=== PATIENT | male | born 1980 | race Caucasian/White ===

== ENCOUNTER 2016-08-20 12:43 | Emergency (ER) | payer OTHER ==
[2016-08-20] MEDS ORDERED: LIDOCAINE HCL 1,000 MG/50 ML VIAL ONE (13:22)
--- NOTE | 2016-08-20 13:54 | ERNOTE ---
Integumentary HPI - Narrative Date of Service: 08/20/16 - General Presenting Symptoms: other - skin problem Time Seen by Provider: 08/20/16 12:59 Source: patient Exam Limitations: no limitations - Immun/Allergies/Home Medications Immunizations: IMMUNIZATION HX Immunizations Up to Date Yes History of Influenza Vaccine No Hx Pneumococcal Vaccination No Allergies/Adverse Reactions: Allergies Allergy/AdvReac Type Severity Reaction Status Date / Time No Known Allergies Allergy Verified 08/20/16 13:03 Home Medications: HOME MEDICATIONS Blood Sugar Diagnostic, Drum [Accu-Chek Compact] 1 each MC TID 11/16/15 [Last Taken 12/10/15] Fenofibrate Nanocrystallized [Tricor] 145 mg PO DAILY 11/16/15 [Last Taken 12/09] Glipizide [Glucotrol Xl] 5 mg PO DAILY 11/16/15 [Last Taken 12/10/15] Ibuprofen [Motrin] 800 mg PO BID PRN 11/16/15 [Last Taken 12/10/15] Lisinopril [Zestril] 40 mg PO BID 11/16/15 [Last Taken 12/11/15] Metoprolol Succinate [Toprol Xl] 100 mg PO QAM 11/16/15 [Last Taken 12/11/15] traMADol HCL [Ultram] 50 - 100 mg PO Q6H PRN 11/16/15 [Last Taken 12/10/15] Albiglutide [Tanzeum] 30 mg SQ SA 08/20/16 [Last Taken Unknown] Atorvastatin Calcium [Lipitor] 10 mg PO DAILY 08/20/16 [Last Taken Unknown] Ciprofloxacin HCl [Cipro] 500 mg PO BID #20 tab 08/20/16 [Last Taken Unknown] Clindamycin HCl [Cleocin HCl] 300 mg PO QID #40 capsule 08/20/16 [Last Taken Unknown] Dexlansoprazole [Dexilant] 30 mg PO DAILY 08/20/16 [Last Taken Unknown] Hydrocodone/Acetaminophen [[place] 5-325 Tablet] 1 tab PO Q6H PRN #12 tab [Last Taken Unknown] Insulin Glargine,Hum.rec.anlog [Lantus] 20 units SC QAM 08/20/16 [Last Taken Unknown] Insulin Glargine,Hum.rec.anlog [Lantus] 30 units SC HS 08/20/16 [Last Taken Unknown] Nebivolol HCl [Bystolic] 10 mg PO DAILY 08/20/16 [Last Taken Unknown] - History of Present Illness Narrative: Patient presents to the ED for skin pain and swelling right inner upper thigh. This area in in the groin crease but not on the scrotum and no perirectal. He noticed a lump there 7-14 days ago and it has been getting more painful and swollen. No fevers. He does have diabetes. No abdominal pain or vomiting. No troubl ewith urination. Pain worse when the area is touched. No drainage. Has not seen anyone else for this. Location: Reports: other - right inner upper thigh/groin area. Quality: Reports: painful Severity: severe Exposure: Reports: no cause identified Modifying Factors - (Improves): Reports: other - rest Modifying Factors - (Worsens): Reports: other - toughing the area Associated Symptoms: Reports: denies symptoms Prior Treatment: Denies: recently seen Review of Systems - Review of Systems Constitutional: Absent: fever Respiratory: Present: no symptoms reported Cardiology: Present: no symptoms reported Gastrointestinal/Abdominal: Present: no symptoms reported Genitourinary: Absent: dysuria Musculoskeletal: Absent: joint pain Skin: Present: See HPI - Patient's Past Medical History Patient History - Medical: ADHD, Diabetes Type 2 Patient History - Cardiac/Respiratory: Hypertension Patient History - Cancer: No Hx of Cancer Patient History - Surgical Procedures: Ear Tubes, T & A Patient History - Other: None - Family History Mother Family History - Medical: Diabetes Type 1 Family History - Cardiac/Respiratory: No pertinent hx Father Family History - Medical: , No pertinent hx Family History - Cardiac/Respiratory: No pertinent hx Brother Family History - Medical: No pertinent hx Family History - Cardiac/Respiratory: No pertinent hx Sister Family History - Medical: No pertinent hx - Social History Living Situations: home Abuse History: No History of abuse Psych History: No pertinent hx Smoking Status: Former smoker Have you smoked in the past 12 months: Yes Alcohol Use: occasionally Drug Use: none - Immunizations Immunizations Up to Date: Yes Hx Pneumococcal Vaccination: No History of Influenza Vaccine: No Physical Exam - Physical Exam General Appearance: Present: alert, no apparent distress, other - Stable, interactive, no distress. Non-toxic. Eye Exam: Normal inspection: bilateral, PERRL: bilateral Respiratory: Present: normal breath sounds, lungs clear Cardiovascular/Chest: Present: regular rate, rhythm Gastrointestinal/Abdominal: Present: normal bowel sounds, nontender, soft, no organomegaly Rectal Exam: Present: other - There is no perirectal abscess or rectal invilvement Male Genitals Exam: Present: other - The area does not extend onto the scrotum and does not invilve the genitals. No Lenny's gangrene. Back Exam: Present: normal range of motion Extremity Exam: Present: other - no joint infection or invilvement Neurological Exam: Present: no motor/sensory deficits Skin Exam: Present: other - There is a 3cmX1.5 cm area in the upper inner thigh crease not involving the scrotum or rectum. It is tender but not fluctuant. There is no clear fluctuance. Firm. This clinically is MRSA infection without abscess. ED Progress - Vital Signs Patient's Vital Signs:: I have reviewed the patient's vital signs. Vital Signs: Vital Signs 08/20/16 12:54 Temperature 35.8 C L Pulse Rate 98 Respiratory 18 Rate Blood Pressure 151/96 O2 Sat by Pulse 96 Oximetry - Progress/Reassessment Chief Complaint: Cellulitis Progress Note-Subjective: 08/20/16 13:48 No cavity to incise or pack found. Given he is diabetic I will place him on Clinca and Cipro. This is likely MRSA. He needs to be re-checked monday and if it not worsening he may need to be evaluated by surgery for a deep I&D but I can find no abscess cavity at this time. Procedures Right Upper Leg Date and Time: 08/20/16 13:46 Anesthesia: 2% Lidocaine, Local I & D Prep: other - alcohol Findings and Actions: other - As there was no clear abscess cavity I utilized 18G needle to probe the area. A small amount of blood was expresed but no purulence. There is nothing to open or pack here that I can find. Complications: Pt brent procedure well Departure Clinical Impression: Skin infection - Departure Disposition: Home self-care Instructions: Cellulitis, Adult, [id number] Additional Instructions: You need to be seen Monday by your doctor for a re-check as this may need additional therapy. Take antibiotics as directed. No driving with pain medications. Sitz baths. Return for fever, increased pain or if your condition worsens or changes in any way. Referrals: [Primary Care Provider] - Prescriptions: Ciprofloxacin HCl [Cipro] 500 mg PO BID #20 tab Clindamycin HCl [Cleocin HCl] 300 mg PO QID #40 capsule Hydrocodone/Acetaminophen [Alta 5-325 Tablet] 1 tab PO Q6H PRN #12 tab PRN Reason: Pain
[2016-08-20 13:56] VITALS: BP 135/82
== END 2016-08-20 14:00 | disposition home or self-care (01) ==
LOC: ER 12:43
DX: L08.9 Local infection of the skin and subcutaneous tissue, unspecified (principal); E11.9 Type 2 diabetes mellitus without complications; Z79.4 Long term (current) use of insulin; I10 Essential (primary) hypertension; Z87.891 Personal history of nicotine dependence

== ENCOUNTER 2016-08-23 07:58 | Emergency (ER) | payer OTHER ==
[2016-08-23 08:20] LABS: Hematocrit 40.8 % (42.0-52.0); Hemoglobin 15.1 gm/dL (13.5-18.0); Mean Cell Volume 84.8 fl (78-100); Mean Corpuscular Hemoglobin 31.4 pg (27-31); Mean Platelet Volume 11.1 fl (6.0-9.5); Neutrophil # 7.7 K/mm3 (1.3-6.0); Neutrophil % 69.5 % (42-75.0); Platelet Count 174 K/mm3 (150-450); Red Blood Count 4.81 M/mm3 (4.7-6.0); Red Cell Distribution Width 11.9 % (11.5-14.0)
[2016-08-23 08:43] LABS: Albumin * 3.5 gm/dl (3.4-5.0); Anion Gap 22.6 mmol/L (6.8-13.8); BUN/Creatinine Ratio 10.4 (9.0-21.6); Bilirubin, Total 0.8 mg/dL (0.0-1.1); Ca. Corrected For Albumin 8.8 mg/dL (8.4-10.2); Calcium * 8.7 mg/dL (7.9-10.9); Carbon Dioxide 15.3 mmol/L (24-32.6); Potassium 3.9 mmol/L (3.4-4.6); Total Protein 7.6 gm/dL (6.2-8.2)
[2016-08-23 08:54] LABS: Urine Appearance Clear; Urine Bacteria None Seen; Urine Bilirubin Negative (NEGATIVE); Urine Blood Negative /ul (NEGATIVE); Urine Color Yellow; Urine Ketone Negative (NEGATIVE); Urine Nitrite Negative (NEGATIVE); Urine Protein Negative (NEGATIVE); Urine RBC None Seen /hpf (0-5); Urine Specific Gravity 1.025 SP.GR. (1.005-1.030); Urine Urobilinogen Normal (NORMAL); Urine WBC None Seen /hpf (0-5)
--- NOTE | 2016-08-23 08:55 | ERNOTE ---
Abdominal HPI - General Chief Complaint: Abdominal Pain Time Seen by Provider: 08/23/16 08:38 Source: patient, family Exam Limitations: no limitations - Immun/Allergies/Home Medications Immunizatons: IMMUNIZATION HX Immunizations Up to Date Yes History of Influenza Vaccine No Hx Pneumococcal Vaccination No Allergies/Adverse Reactions: Allergies No Known Allergies Allergy (Verified 08/23/16 08:07) Home Medications: HOME MEDICATIONS Blood Sugar Diagnostic, Drum [Accu-Chek Compact] 1 each MC TID 11/16/15 [Last Taken 12/10/15] Fenofibrate Nanocrystallized [Tricor] 145 mg PO DAILY 11/16/15 [Last Taken 12/09] Glipizide [Glucotrol Xl] 5 mg PO DAILY 11/16/15 [Last Taken 12/10/15] Ibuprofen [Motrin] 800 mg PO BID PRN 11/16/15 [Last Taken 12/10/15] Lisinopril [Zestril] 40 mg PO BID 11/16/15 [Last Taken 12/11/15] Metoprolol Succinate [Toprol Xl] 100 mg PO QAM 11/16/15 [Last Taken 12/11/15] traMADol HCL [Ultram] 50 - 100 mg PO Q6H PRN 11/16/15 [Last Taken 12/10/15] Albiglutide [Tanzeum] 30 mg SQ SA 08/20/16 [Last Taken Unknown] Atorvastatin Calcium [Lipitor] 10 mg PO DAILY 08/20/16 [Last Taken Unknown] Ciprofloxacin HCl [Cipro] 500 mg PO BID #20 tab 08/20/16 [Last Taken Unknown] Clindamycin HCl [Cleocin HCl] 300 mg PO QID #40 capsule 08/20/16 [Last Taken Unknown] Dexlansoprazole [Dexilant] 30 mg PO DAILY 08/20/16 [Last Taken Unknown] Hydrocodone/Acetaminophen [[place] 5-325 Tablet] 1 tab PO Q6H PRN #12 tab [Last Taken Unknown] Insulin Glargine,Hum.rec.anlog [Lantus] 20 units SC QAM 08/20/16 [Last Taken Unknown] Insulin Glargine,Hum.rec.anlog [Lantus] 30 units SC HS 08/20/16 [Last Taken Unknown] Nebivolol HCl [Bystolic] 10 mg PO DAILY 08/20/16 [Last Taken Unknown] - History of Present Illness Narrative: Patient was seen in the ER three days ago for cellulitis on his right thigh and started on clindamycin, cipro and hydrocodone. He states that the area on his thigh has healed off well but he started to have left sided abdominal pain. The pain started two days ago in the afternoon, is constant and has been getting worse, left sided upper abdomen with radiation to the chest, flank and lower abdomen. he vomited ones at 03:00, has tolerated fluids since but is still nauseated. He did not take his morning medication, had a normal bowel movement yesterday Timing: constant, getting worse Quality: moderate, aching, dullness Activities at Onset: none Modifying Factors - (Improves): Present: rest Modifying Factors - (Worsens): Present: movement. Absent: breathing, coughing, eating, vomiting Associated Symptoms: Absent: headache, chest pain, diaphoresis, diarrhea-mucous , fever/chills, heartburn, nausea, vomiting, shortness of breath Prior Abdominal Problems: Present: none Prior Treatment: Present: recently seen, currently on antibiotics Review of Systems - Review of Systems Constitutional: Present: recent illness. Absent: fever ENT: Absent: nose congestion, sore throat Respiratory: Absent: shortness of breath, cough Cardiology: Absent: chest pain Gastrointestinal/Abdominal: Present: See HPI Genitourinary: Present: no symptoms reported. Absent: frequency Skin: Absent: rash Neurological: Absent: headache, weakness, numbness - Patient's Past Medical History Patient History - Medical: ADHD, Diabetes Type 2, Obesity Patient History - Cardiac/Respiratory: Hypertension, Hyperlipidemia Patient History - Cancer: No Hx of Cancer Patient History - Surgical Procedures: Ear Tubes, T & A Patient History - Other: None - Family History Mother Family History - Medical: Diabetes Type 1 Family History - Cardiac/Respiratory: No pertinent hx Father Family History - Medical: , No pertinent hx Family History - Cardiac/Respiratory: No pertinent hx Brother Family History - Medical: No pertinent hx Family History - Cardiac/Respiratory: No pertinent hx Sister Family History - Medical: No pertinent hx - Social History Living Situations: home Abuse History: No History of abuse Psych History: No pertinent hx Smoking Status: Former smoker Have you smoked in the past 12 months: No Alcohol Use: occasionally Drug Use: none - Immunizations Immunizations Up to Date: Yes Hx Pneumococcal Vaccination: No History of Influenza Vaccine: No Physical Exam - Physical Exam General Appearance: Present: wd/wn, alert, no apparent distress, anxious, obese Ears, Nose, Throat: Present: normal pharynx, dry mucous membranes Respiratory: Present: no respiratory distress, normal breath sounds, no accessory muscle use, lungs clear Cardiovascular/Chest: Present: regular rate, rhythm, no murmur Gastrointestinal/Abdominal: Present: tenderness - mildly left abdomen, max upper mid abdomen, abnormal bowel sounds - decreased Back Exam: Present: no CVA tenderness Neurological Exam: Present: alert, oriented, normal mood/affect Skin Exam: Present: normal color, warm/dry ED Progress - Results and Orders Patient's Lab Results:: I have reviewed the patient's lab results. - Vital Signs Patient's Vital Signs:: I have reviewed the patient's vital signs. Vital Signs: Vital Signs 08/23/16 08:03 Temperature 36.5 C Pulse Rate 80 Respiratory 14 Rate Blood Pressure 154/97 O2 Sat by Pulse 96 Oximetry - X-Ray X-Ray #1 X-Ray: abdomen - single loop of bowel with air fluid level in left abdomen Interpretation: Reviewed by me - CT/Ultrasound CT/Ultrasound Narrative: CT abdomen/pelvis: no acute findings except constipation - Progress/Reassessment Chief Complaint: Abdominal Pain Progress Note-Subjective: 08/23/16 09:39 discussed test results and plan to get CT abdomen/pelvis 08/23/16 12:[address], pain has resolved Departure - Departure Clinical Impression: Constipation Qualifiers: Constipation type: unspecified constipation type Qualified Code(s): K59.00 - Constipation, unspecified Disposition: Home self-care Condition: Good Instructions: Constipation, Adult, [id number] Referrals: [Primary Care Provider] -
[2016-08-23 09:22] LABS: Cholesterol 314 mg/dL (0-200); HDL Cholesterol 29 mg/dL (40-60); VLDL Cholesterol 332 mg/dL (5-40)
[2016-08-23 09:23] LABS: Chol/HDL Risk Ratio 10.8 mg/dL (3.3-5.0)
[2016-08-23 09:24] LABS: Triglycerides 1662 mg/dL (30-200)
[2016-08-23] MEDS ORDERED: NORMAL SALINE 1,000 ML IV ONE (09:38)
[2016-08-23] MEDS ORDERED: DIATRIZOATE MEGLU/DIATRIZO SOD 30 ML BTL PO ONE (09:38)
[2016-08-23] MEDS ORDERED: KETOROLAC TROMETHAMINE 30 MG/ML VIAL IV ONE (09:38)
[2016-08-23] MEDS ORDERED: ONDANSETRON HCL/PF 2 MG/ML VIAL IV ONE (09:38)
[2016-08-23] MEDS ORDERED: ONDANSETRON HCL/PF 2 MG/ML VIAL ONE (09:49)
[2016-08-23] MEDS ORDERED: DIATRIZOATE MEGLU/DIATRIZO SOD 30 ML BTL ONE (09:50)
[2016-08-23] MEDS ORDERED: KETOROLAC TROMETHAMINE 30 MG/ML VIAL ONE (09:50)
[2016-08-23 13:00] VITALS: BP 149/93
== END 2016-08-23 12:43 | disposition home or self-care (01) ==
LOC: ER 07:58
DX: R10.84 Generalized abdominal pain (principal); K59.00 Constipation, unspecified; L03.115 Cellulitis of right lower limb; E11.9 Type 2 diabetes mellitus without complications; I10 Essential (primary) hypertension; E78.5 Hyperlipidemia, unspecified